=== PATIENT | female | born 1930 | race Caucasian/White ===

== ENCOUNTER 2016-05-04 11:43 | Observation (INO) | payer MEDICARE ==
[2016-05-04] VITALS (9 sets, daily range): BP systolic 145–223; BP diastolic 67–115; PULSE 64–86; RESP 15–20; TEMP 96.4–98.1; O2SAT 98–100
[~2016-05-04 11:43] MED LIST: ACET325 PO; CLAR5TAB PO; CYAN25003 PO; DETR4CAP PO; DOCU1CAP39 PO; DUONI INH; ESTR1TAB PO; HYDR10SO PO; IRBE1TAB39 PO; LEVO75TA3 PO; METO25 PO; MVI PO; OXYC1SOL5 PO; PROT40TA PO; VITA200017 PO; WALKER ROLLING
[2016-05-04] MEDS ORDERED: SODIUM CHLORIDE 0.9% FLUSH 10 ML FLUSH IVF PRN (12:00)
[2016-05-04 12:19] LABS: BASOPHIL % 0.4 % (0.0-2.0); EOSINOPHIL # 0.2 TH/MM3 (0-0.4); EOSINOPHIL % 2.6 % (0.0-4.0); HEMATOCRIT 39.8 % (35.0-46.0); HEMO FLAGS DIFF FINAL; LYMPH % 27.6 % (9.0-44.0); LYMPHOCYTE # 1.9 TH/MM3 (1.0-4.8); MEAN CELL VOLUME 89.9 FL (80.0-100.0); MEAN CORPUSCULAR HEMOGLOBIN 30.6 PG (27.0-34.0); MEAN CORPUSCULAR HGB CONC 34.1 % (32.0-36.0); MONO % 9.8 % (0.0-8.0); NEUT % 59.6 % (16.0-70.0); PLATELET COUNT 403 TH/MM3 (150-450); RED BLOOD COUNT 4.42 MIL/MM3 (4.00-5.30); RED CELL DISTRIBUTION WIDTH 12.2 % (11.6-17.2); WHITE BLOOD COUNT 6.8 TH/MM3 (4.0-11.0)
[2016-05-04 12:26] LABS: BLOOD, URINE TRACE (NEG); GLUCOSE,URINE NEG (NEG); KETONE, URINE NEG (NEG); NITRITE,URINE NEG (NEG)
[2016-05-04 12:28] LABS: CHLORIDE 98 MEQ/L (98-107); POTASSIUM 4.1 MEQ/L (3.5-5.1); SODIUM (NA) 135 MEQ/L (136-145)
[2016-05-04 12:31] LABS: ANION GAP 9 MEQ/L (5-15); BICARBONATE 27.8 MEQ/L (21.0-32.0); BLOOD UREA NITROGEN 13 MG/DL (7-18)
[2016-05-04 12:32] LABS: METHOD OF COLLECTION CLEAN CATCH; SQUAMOUS EPITHELIAL CELL URINE > 8 /hpf (0-5); URINE COLOR YELLOW (YELLW/STRAW); WBC, URINE INNUM /hpf (0-5)
[2016-05-04 12:33] LABS: BACTERIA, URINE MANY /hpf; COMMENT (UR) CULTURE INDICATED; CULTURE IF INDICATED CULTURE INDICATED
[2016-05-04 12:33] LABS: APTT (PATIENT) 26.1 SEC (24.3-30.1); INTERNATIONAL NORMALIZED RATIO 0.9 RATIO; PROTHROMBIN TIME - PATIENT 10.2 SEC (9.8-11.6)
--- NOTE | 2016-05-04 12:33 | PD ---
HPI Chief Complaint: Numbness/Tingling Time Seen by Provider: 11:54 Travel History International Travel<30 days: No Contact w/Intl Traveler<30days: No Traveled to known affect area: No History of Present Illness HPI An 86-year-old woman presents to the emergency department brought in by her after she experienced the abrupt onset of numbness of her left arm and left face lasting about 10 minutes happening just prior to arrival. She's never had previous similar symptoms. She does not appreciate any weakness. The did not notice any facial droop, confusion, or speech changes. She otherwise has been feeling generally well and healthy. She's having a lot of trouble with her right leg. She has a lot of chronic neck and back problems and is been having sciatica-like symptoms in the right leg ongoing for the past several weeks. Otherwise no recent illness or injury. She is not having any headache. History Past Medical History Narrative Medical Hypertension Neck and back problems Menopausal: Yes Social History Alcohol Use: Yes ([employer]) Tobacco Use: No Allergies-Medications (Allergen,Severity, Reaction): Coded Allergies: Norvasc (Verified Allergy, Severe, 05/04/16) Sulfa (Verified Allergy, Severe, 05/04/16) Vasotec (Verified Allergy, Severe, 05/04/16) Zestril (Verified Allergy, Severe, 05/04/16) Codeine (Verified Allergy, Intermediate, 05/04/16) Demerol (Verified Allergy, Unknown, 05/04/16) Iodine (Verified Allergy, Unknown, 05/04/16) 04/16/14--RASH Irbesartan (Verified Allergy, Unknown, RASH, 05/04/16) 04/16/14 DENIES ALLERGY Dilaudid (Verified Adverse Reaction, Severe, "CLIMBS THE CEILING", 05/04/16 ) Reported Meds & Prescriptions Reported Meds & Active Scripts Active Reported Aspir-81 (Aspirin) 81 Mg Tabdr Hydralazine (Hydralazine HCl) 25 Mg Tab 12.5 Mg PO DAILY@1600 Take with a meal Avapro (Irbesartan) 300 Mg Tab 300 Mg PO DAILY Levothyroxine (Levothyroxine Sodium) 75 Mcg Tab 75 Mcg PO DAILY Atenolol 25 Mg Tab 25 Mg PO DAILY Spironolactone 25 Mg Tab 25 Mg PO DAILY Estradiol 1 Mg Tab 1 Mg PO DAILY Detrol LA (Tolterodine Tartrate) 4 Mg Cap 4 Mg PO DAILY Clarinex (Desloratadine) 5 Mg Tab 5 Mg PO DAILY Review of Systems Except as stated in HPI: all other systems reviewed are Neg Physical Exam Narrative GENERAL: Well-appearing 86 year-old woman, no acute distress. SKIN: Warm and dry. HEAD: Atraumatic. Normocephalic. EYES: Pupils equal and round. No scleral icterus. No injection or drainage. ENT: No nasal bleeding or discharge. Mucous membranes pink and moist. NECK: Trachea midline. No JVD. CARDIOVASCULAR: Regular rate and rhythm. No murmur appreciated. RESPIRATORY: No accessory muscle use. Clear to auscultation. Breath sounds equal bilaterally. GASTROINTESTINAL: Abdomen soft, non-tender, nondistended. Hepatic and splenic margins not palpable. MUSCULOSKELETAL: No obvious deformities. No edema.. NEUROLOGICAL: Awake and alert. Cranial nerves II through XII are intact. No facial asymmetry. Motor strength full and equal upper and lower extremities. No upper or lower extremity drift. Normal finger to nose. Sensation intact to light touch and symmetric and equal throughout. PSYCHIATRIC: Appropriate mood and affect; insight and judgment normal. Data Data Last Documented VS Vital Signs Date Time Temp Pulse Resp B/P Pulse Ox O2 Delivery O2 Flow Rate FiO2 05/04/16 13:05 76 15 145/67 98 Room Air 05/04/16 12:12 98.1 Orders Electrocardiogram (05/04/16 11:55) Prothrombin Time / Inr (Pt) (05/04/16 11:55) Act Partial Throm Time (Ptt) (05/04/16 11:55) Complete Blood Count With Diff (05/04/16 11:55) Comprehensive Metabolic Panel (05/04/16 11:55) Troponin I (05/04/16 11:55) Urinalysis - C+S If Indicated (05/04/16 11:55) Ct Brain W/O Iv Contrast(Rout) (05/04/16 11:55) Chest, Single Ap (05/04/16 11:55) Ecg Monitoring (05/04/16 11:55) Iv Access Insert/Monitor (05/04/16 11:55) Oximetry (05/04/16 11:55) Sodium Chloride 0.9% Flush (Ns Flush) (05/04/16 12:00) Urine Culture (05/04/16 12:15) Ceftriaxone Inj (Rocephin Inj) (05/04/16 13:45) Admit Order (Ed Use Only) (05/04/16 ) Labs Laboratory Tests Test 05/04/16 05/04/16 12:05 12:15 White Blood Count 6.8 TH/MM3 Red Blood Count 4.42 MIL/MM3 Hemoglobin 13.5 GM/DL Hematocrit 39.8 % Mean Corpuscular Volume 89.9 FL Mean Corpuscular Hemoglobin 30.6 PG Mean Corpuscular Hemoglobin 34.1 % Concent Red Cell Distribution Width 12.2 % Platelet Count 403 TH/MM3 Mean Platelet Volume 6.8 FL Neutrophils (%) (Auto) 59.6 % Lymphocytes (%) (Auto) 27.6 % Monocytes (%) (Auto) 9.8 % Eosinophils (%) (Auto) 2.6 % Basophils (%) (Auto) 0.4 % Neutrophils # (Auto) 4.0 TH/MM3 Lymphocytes # (Auto) 1.9 TH/MM3 Monocytes # (Auto) 0.7 TH/MM3 Eosinophils # (Auto) 0.2 TH/MM3 Basophils # (Auto) 0.0 TH/MM3 CBC Comment DIFF FINAL Differential Comment Prothrombin Time 10.2 SEC Prothromb Time International 0.9 RATIO Ratio Activated Partial 26.1 SEC Thromboplast Time Sodium Level 135 MEQ/L Potassium Level 4.1 MEQ/L Chloride Level 98 MEQ/L Carbon Dioxide Level 27.8 MEQ/L Anion Gap 9 MEQ/L Blood Urea Nitrogen 13 MG/DL Creatinine 1.20 MG/DL Estimat Glomerular Filtration 43 ML/MIN Rate Random Glucose 81 MG/DL Calcium Level 8.6 MG/DL Total Bilirubin 0.4 MG/DL Aspartate Amino Transf 16 U/L (AST/SGOT) Alanine Aminotransferase 16 U/L (ALT/SGPT) Alkaline Phosphatase 79 U/L Troponin I LESS THAN 0.02 NG/ML Total Protein 7.4 GM/DL Albumin 3.9 GM/DL Urine Collection Type CLEAN CATCH Urine Color YELLOW Urine Turbidity MOD Urine pH 6.0 Urine Specific [place] 1.008 Urine Protein NEG mg/dL Urine Glucose (UA) NEG mg/dL Urine Ketones NEG mg/dL Urine Occult Blood TRACE Urine Nitrite NEG Urine Bilirubin NEG Urine Leukocyte Esterase LARGE Urine RBC 20-24 /hpf Urine WBC INNUM /hpf Urine WBC Clumps MOD Urine Squamous Epithelial > 8 /hpf Cells Urine Bacteria MANY /hpf Microscopic Urinalysis Comment CULTURE INDICATED Urine Collection Time 12:15 [facility] Medical Decision Making Medical Screen Exam Complete: Yes Emergency Medical Condition: Yes Interpretation(s) My review of EKG: Normal sinus rhythm at a rate of 75, normal axis, normal intervals, no acute ischemia. LABS: CBC is unremarkable. CMP is unremarkable. Creatinine 1.2 Troponin negative Coags unremarkable UA with innumerable white blood cells, moderate white blood cell clumps, negative nitrites, many bacteria. Chest x-ray: No acute disease. Stable calcified granuloma in the left midlung. Degenerative changes throughout the thoracic spine. Head CT: Moderate periventricular subcortical white matter small vessel ischemic changes bilaterally. Mild cerebral atrophy. No acute infarct, acute hemorrhage, mass effect, or extra-axial fluid collections. Differential Diagnosis TIA, CVA, anxiety, dissection, other Narrative Course Medical decision making INITIAL cause an 86-year-old woman who presents to the emergency department with about 10 minutes worth of left-sided facial and arm numbness suggestive of TIA symptoms. No weakness. No facial droop. Blood pressures pretty elevated. We'll check labs, CT, x-ray, reassess. Based on the patient's ABCD 2 score, she is moderate risk with a 7 day stroke risk of 6%. Likely admission for further evaluation. Diagnosis Primary Impression: TIA (transient ischemic attack) Admitting Information Admitting Physician Requests: Admit Jose Alejandro Huntley MD May 04, 2016 12:33
[2016-05-04 12:34] LABS: ALT (GPT) 16 U/L (10-53); AST (GOT) 16 U/L (15-37); GLOMERULAR FILTRATION RATE 43 ML/MIN (>89)
[2016-05-04] MEDS ORDERED: ASPI81TA81 (12:34)
[2016-05-04] MEDS ORDERED: SPIR25TA PO (12:34)
[2016-05-04] MEDS ORDERED: CLAR5TAB PO (12:34)
[2016-05-04] MEDS ORDERED: DETR4CAP PO (12:34)
[2016-05-04] MEDS ORDERED: HYDR25TA35 PO (12:34)
[2016-05-04] MEDS ORDERED: ESTR1TAB PO (12:34)
[2016-05-04] MEDS ORDERED: IRBE300T44 PO (12:34)
[2016-05-04] MEDS ORDERED: ATEN25TA PO (12:34)
[2016-05-04] MEDS ORDERED: LEVO75TA3 PO (12:34)
[2016-05-04 12:36] LABS: TOTAL BILIRUBIN ADULT 0.4 MG/DL (0.2-1.0)
[2016-05-04 12:37] LABS: ALKALINE PHOSPHATASE 79 U/L (45-117)
--- NOTE | 2016-05-04 12:57 | RADHPO ---
EXAM DATE/TIME: 05/04/2016 12:25 [facility] COMPARISON: CHEST SINGLE AP, April 15, 2011, 13:55. INDICATIONS : Short of breath. MEDICAL HISTORY : Cardiovascular disease. SURGICAL HISTORY : Fusion, cervical. ENCOUNTER: Initial ACUITY: 1 day PAIN SCORE: 2/10 LOCATION: Bilateral chest FINDINGS: There is a stable calcified granuloma within the left mid lung field. The heart is stable. The pulm onary vascular pattern is normal. The lungs are clear. Hardware is noted within the lower cervical spine. Degenerative changes are noted throughout the thoracic spine. CONCLUSION: 1. No acute cardiopulmonary disease. 2. Stable calcified granuloma within the left mid lung field. 3. Degenerative changes throughout the thoracic spine. Sergey Barnes MD on May 04, 2016 at 12:51 Board Certified Radiologist. This report was verified electronically.
--- NOTE | 2016-05-04 13:28 | RADHPO ---
EXAM DATE/TIME: 05/04/2016 12:37 [facility] COMPARISON: CT BRAIN W/O CONTRAST, May 14, 2014, 4:59. INDICATIONS : Left upper extremity and left facial numbness, now resolved. RADIATION DOSE: 62.98 CTDIvol (mGy) MEDICAL HISTORY : Hypertension. Cardiovascular disease SURGICAL HISTORY : Tonsillectomy. Orthopedic surgery. Cataract. ENCOUNTER: Initial ACUITY: 1 day PAIN SCALE: 0/10 LOCATION: cranial TECHNIQUE: Multiple contiguous axial images were obtained of the head. Using automated exposure control and adj ustment of the mA and/or kV according to patient size, radiation dose was kept as low as reasonably a chievable to obtain optimal diagnostic quality images. FINDINGS: Moderate periventricular and subcortical white matter small vessel ischemic changes are noted bilaterally. There is no acute infarct, acute hemorrhage, mass effect or extra-axial fluid col lections. Mild cerebral atrophy is noted. CONCLUSION: 1. Moderate periventricular and subcortical white matter small vessel ischemic changes bilaterally. 2. Mild cerebral atrophy. 3. No acute infarct, acute hemorrhage, mass effect or extra-axial fluid collections. Sergey Barnes MD on May 04, 2016 at 12:58 Board Certified Radiologist. This report was verified electronically.
[2016-05-04] MEDS ORDERED: cefTRIAXone INJ 1,000 MG in SODIUM CHLORIDE 0.9% INJ 100 ML IV ONE (13:45)
[2016-05-04] MEDS ORDERED: ONDANSETRON HCL 4 MG/2 ML VIAL IVP PRN (16:45)
[2016-05-04] MEDS ORDERED: ACETAMINOPHEN 325 MG TAB PO PRN (16:45)
[2016-05-04] MEDS ORDERED: NALOXONE HCL 0.4 MG/ML AMP IV PRN (16:45)
[2016-05-04] MEDS ORDERED: SODIUM CHLORIDE 0.9% FLUSH 10 ML FLUSH IV FLUSH PRN (16:45)
--- NOTE | 2016-05-04 17:06 | HHI.HP ---
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 Patient states this sensation began initially in the middle finger of her left hand and then spread to encompass the second to the fifth digits. She denies strength in the sensation in the thumb or the remainder of the hand as well as in the left arm. Within a few minutes the she then developed coldness and decreased sensation from little left side. Patient states that her symptoms lasted for about 10 minutes and had resolved prior to her coming to the ED. At that time the patient denies any complaints of slurred speech, headache, dizziness, lightheadedness, weakness, loss of vision/ vision changes, palpitations, nausea, vomiting, chest pain or shortness of breath. She denies any previous history of CVA or TIA. She denies any significant cardiac history. She does report urinary urgency but denies any dysuria or hematuria. She denies any issues with hematochezia, melena, diarrhea or constipation. Patient has significant lumbar spine history and has had multiple spine surgeries in the past. She complains of worsening right leg pain that she states is sciatica over the last week and actually fell due to the right leg giving out on her and hit her head on the bed about 4 nights ago. In the ED, patient had an elevated blood pressure of 223/115 but this is improved significantly is now 162/84. CT of the head was obtained and was negative. Review of Systems 10 point review of systems completed and all negative except as stated in the history of present illness Past Family Social History Past Medical History Hypertension Dyslipidemia Hypothyroidism DD the cervical and lumbar spine Past Surgical History Previous cervical fusion Lumbar spine surgery 6 Appendectomy Tonsillectomy Reported Medications Aspir-81 (Aspirin) 81 Mg Tabdr Hydralazine (Hydralazine HCl) 25 Mg Tab 12.5 Mg PO DAILY@1600 Take with a meal Avapro (Irbesartan) 300 Mg Tab 300 Mg PO DAILY Levothyroxine (Levothyroxine Sodium) 75 Mcg Tab 75 Mcg PO DAILY Atenolol 25 Mg Tab 25 Mg PO DAILY Spironolactone 25 Mg Tab 25 Mg PO DAILY Estradiol 1 Mg Tab 1 Mg PO DAILY Detrol LA (Tolterodine Tartrate) 4 Mg Cap 4 Mg PO DAILY Clarinex (Desloratadine) 5 Mg Tab 5 Mg PO DAILY Allergies: Coded Allergies: Norvasc (Verified Allergy, Severe, 05/07/16) Sulfa (Verified Allergy, Severe, 05/07/16) Vasotec (Verified Allergy, Severe, 05/07/16) Zestril (Verified Allergy, Severe, 05/07/16) Codeine (Verified Allergy, Intermediate, 05/07/16) Demerol (Verified Allergy, Unknown, 05/07/16) Iodine (Verified Allergy, Unknown, 05/07/16) 04/16/14--RASH Irbesartan (Verified Allergy, Unknown, RASH, 05/07/16) 04/16/14 DENIES ALLERGY Dilaudid (Verified Adverse Reaction, Severe, "CLIMBS THE CEILING", 05/07/16 ) Active Ordered Medications Current Medications Medications (Trade) Dose Ordered Sig/Janina Route Start Time Stop Time Status Last Admin (NS Flush) 2 ml UNSCH PRN IVF 05/04/16 12:00 Family History Mother, age 60, CVA Father, when patient was 3 months old from tuberculosis Social History Patient denies any tobacco use. Rare ETOH consumption. Denies any illicit drug use. Patient is lives with her . Physical Exam Vital Signs Vital Signs Date Time Temp Pulse Resp B/P Pulse Ox O2 Delivery O2 Flow Rate FiO2 05/04/16 15:08 71 15 162/84 05/04/16 13:05 76 15 145/67 98 Room Air 05/04/16 12:12 98.1 86 15 223/115 98 05/04/16 12:10 98 Room Air 3/22/17 12:00 197/104 Physical Exam GENERAL: This is a well-nourished, well-developed patient, in no apparent distress. SKIN: No rashes, ecchymoses or lesions. Cool and dry. HEAD: Atraumatic. Normocephalic. EYES: Pupils equal round and reactive. Extraocular motions intact. No scleral icterus. No injection or drainage. ENT: Nose without bleeding, purulent drainage or septal hematoma. Throat without erythema, tonsillar hypertrophy or exudate. Uvula midline. Airway patent. NECK: Trachea midline. No lymphadenopathy. Supple, nontender, no meningeal signs. CARDIOVASCULAR: Regular rate and rhythm without murmurs, gallops, or rubs. RESPIRATORY: Clear to auscultation. Breath sounds equal bilaterally. No wheezes , rales, or rhonchi. GASTROINTESTINAL: Abdomen soft, non-tender, nondistended. No hepato-splenomegaly , or palpable masses. No guarding. MUSCULOSKELETAL: Extremities without clubbing, cyanosis, or edema. No joint tenderness, effusion, or edema noted. No calf tenderness. NEUROLOGICAL: Awake and alert. Cranial nerves II through XII intact. Motor and sensory grossly within normal limits. Five out of 5 muscle strength in bilateral upper extremities and left lower extremity. 4 out of 5 motor function right lower extremity. Normal speech. Laboratory Laboratory Tests Test 05/04/16 05/04/16 12:05 12:15 White Blood Count 6.8 Red Blood Count 4.42 Hemoglobin 13.5 Hematocrit 39.8 Mean Corpuscular Volume 89.9 Mean Corpuscular Hemoglobin 30.6 Mean Corpuscular Hemoglobin 34.1 Concent Red Cell Distribution Width 12.2 Platelet Count 403 Mean Platelet Volume 6.8 Neutrophils (%) (Auto) 59.6 Lymphocytes (%) (Auto) 27.6 Monocytes (%) (Auto) 9.8 Eosinophils (%) (Auto) 2.6 Basophils (%) (Auto) 0.4 Neutrophils # (Auto) 4.0 Lymphocytes # (Auto) 1.9 Monocytes # (Auto) 0.7 Eosinophils # (Auto) 0.2 Basophils # (Auto) 0.0 CBC Comment DIFF FINAL Differential Comment Prothrombin Time 10.2 Prothromb Time International 0.9 Ratio Activated Partial 26.1 Thromboplast Time Sodium Level 135 Potassium Level 4.1 Chloride Level 98 Carbon Dioxide Level 27.8 Anion Gap 9 Blood Urea Nitrogen 13 Creatinine 1.20 Estimat Glomerular Filtration 43 Rate Random Glucose 81 Calcium Level 8.6 Total Bilirubin 0.4 Aspartate Amino Transf 16 (AST/SGOT) Alanine Aminotransferase 16 (ALT/SGPT) Alkaline Phosphatase 79 Troponin I LESS THAN 0.02 Total Protein 7.4 Albumin 3.9 Urine Collection Type CLEAN CATCH Urine Color YELLOW Urine Turbidity MOD Urine pH 6.0 Urine Specific [place] 1.008 Urine Protein NEG Urine Glucose (UA) NEG Urine Ketones NEG Urine Occult Blood TRACE Urine Nitrite NEG Urine Bilirubin NEG Urine Leukocyte Esterase LARGE Urine RBC 20-24 Urine WBC INNUM Urine WBC Clumps MOD Urine Squamous Epithelial > 8 Cells Urine Bacteria MANY Microscopic Urinalysis Comment CULTURE INDICATED Urine Collection Time 12:15 Date/Time Procedure Status Source Growth 05/04/16 12:15 Urine Culture Received Urine Clean Catch Pending Result Diagram: 05/04/16 1205 05/04/16 1205 Imaging Last [address] 05/04/16 1155 Signed Impressions: Service Date/Time: Wednesday, May 04, 2016 12:37 - CONCLUSION: 1. Moderate periventricular and subcortical white matter small vessel ischemic changes bilaterally. 2. Mild cerebral atrophy. 3. No acute infarct, acute hemorrhage , mass effect or extra-axial fluid collections. Sergey Barnes MD Chest X-Ray 05/04/16 1155 Signed Impressions: Service Date/Time: Wednesday, May 04, 2016 12:25 - CONCLUSION: 1. No acute cardiopulmonary disease. 2. Stable calcified granuloma within the left mid lung field. 3. Degenerative changes throughout the thoracic spine. 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 Suspected TIA, rule out underlying stroke - Admit to observation - Patient at increased risk for CVA given history of estradiol use, uncontrolled hypertension, moderate periventricular and subcortical white matter small vessel ischemic changes bilaterally as noted on CT of the head and reported history of dyslipidemia not on any statin at home - Monitor on telemetry for arrhythmia - Echocardiogram ordered - Carotid ultrasound - Obtain TSH level, lipid panel and A1c - Neuro checks - PT/OT eval/tx - Baby aspirin daily - High dose statin - Keep head of bed flat - MRI and MRA of brain - Cycle cardiac enzymes - Allow permissive hypertension Hypertension urgency - Improved - Continue to monitor BP - Labetalol and Enalapril prn for stroke protocol parameter Symptomatic UTI - IV Rocephin - Follow up on culture results SANYA - Baseline around .75 - Hold Spironolactone - Avoid nephrotoxic agents - repeat labs in am Hyponatremia - Mild - Gentle IV fluid hydration - Monitor response with labs in a.m. Hypothyroidism - Resume home levothyroxine dose - Obtain TSH level DVT prophylaxis - SCD/BULMARO hose Written by Jaz Shelby, acting as scribe for Dr. Herrmann on 05/04/16 at 16:34. Jaz Shelby May 04, 2016 17:06 Malik Herrmann MD May 04, 2016 19:58
[2016-05-04] MEDS: SODIUM CHLOR 0.9% 1000 ML INJ 1,000 ML IV SCH (18:12)
[2016-05-04] MEDS: ATORVASTATIN 40 MG TAB PO SCH (18:15)
[2016-05-04] MEDS: ASPIRIN EC 81 MG TABEC PO SCH (18:15)
[2016-05-04] MEDS ORDERED: ENALAPRILAT 1.25 MG/ML VIAL IV PRN (18:45)
[2016-05-04] MEDS ORDERED: LABETALOL HCL 100 MG/20 ML VIAL IV PRN (18:45)
[2016-05-04 19:55] LABS: INTERNATIONAL NORMALIZED RATIO 0.9 RATIO; PROTHROMBIN TIME - PATIENT 10.4 SEC (9.8-11.6)
[2016-05-04 20:12] LABS: CREATINE KINASE 53 U/L (26-192)
[2016-05-04] MEDS: INSULIN ASPART SUPPLEMENTAL SCALE SQ SCH (21:00)
[2016-05-04] MEDS: SODIUM CHLORIDE 0.9% FLUSH 10 ML FLUSH IV FLUSH SCH (21:00)
[2016-05-04] MEDS: HEPARIN SODIUM - SQ 10,000 UNITS/ML VIAL SQ SCH (22:31)
[2016-05-04] MEDS ORDERED: LORazepam 2 MG/ML VIAL IV PUSH PRN (22:45)
[2016-05-05] VITALS: BP_SYST 146; BP_SYST 148; BP_DIAS 69; BP_DIAS 87; PULSE 64; PULSE 65; PULSE 66; RESP 19; RESP 20; TEMP 96.4; TEMP 96.7; O2SAT 97; O2SAT 99
[2016-05-05 01:16] LABS: CREATINE KINASE 47 U/L (26-192)
[2016-05-05 04:00] VITALS: BP 142/83; PULSE 68; RESP 20; TEMP 96.7; O2SAT 98
[2016-05-05] MEDS: HEPARIN SODIUM - SQ 10,000 UNITS/ML VIAL SQ SCH ×2 (05:42→14:42)
[2016-05-05 05:49] LABS: AUTOMATED NEUTROPHIL # 3.4 TH/MM3 (1.8-7.7); BASOPHIL % 0.5 % (0.0-2.0); EOSINOPHIL # 0.2 TH/MM3 (0-0.4); HEMATOCRIT 37.3 % (35.0-46.0); HEMO FLAGS DIFF FINAL; LYMPH % 29.8 % (9.0-44.0); LYMPHOCYTE # 1.8 TH/MM3 (1.0-4.8); MEAN CELL VOLUME 89.7 FL (80.0-100.0); MEAN CORPUSCULAR HEMOGLOBIN 31.5 PG (27.0-34.0); MEAN CORPUSCULAR HGB CONC 35.1 % (32.0-36.0); NEUT % 54.7 % (16.0-70.0); PLATELET COUNT 357 TH/MM3 (150-450); RED BLOOD COUNT 4.15 MIL/MM3 (4.00-5.30); RED CELL DISTRIBUTION WIDTH 12.4 % (11.6-17.2); WHITE BLOOD COUNT 6.1 TH/MM3 (4.0-11.0)
[2016-05-05] MEDS ORDERED: LEVOTHYROXINE SODIUM 75 MCG TAB PO SCH (06:00)
[2016-05-05 06:07] LABS: CHLORIDE 105 MEQ/L (98-107); SODIUM (NA) 139 MEQ/L (136-145)
[2016-05-05 06:13] LABS: ANION GAP 9 MEQ/L (5-15); BICARBONATE 24.9 MEQ/L (21.0-32.0); BLOOD UREA NITROGEN 11 MG/DL (7-18)
[2016-05-05 06:16] LABS: GLOMERULAR FILTRATION RATE 67 ML/MIN (>89)
[2016-05-05 06:25] LABS: CREATINE KINASE 40 U/L (26-192)
[2016-05-05] MEDS: INSULIN ASPART SUPPLEMENTAL SCALE SQ SCH ×3 (06:42→16:00)
[2016-05-05] MEDS ORDERED: cefTRIAXone INJ 1,000 MG in SODIUM CHLORIDE 0.9% INJ 100 ML IV SCH (07:00)
[2016-05-05 08:00] VITALS: BP 153/80; PULSE 71; RESP 20; TEMP 95.3; O2SAT 99
[2016-05-05 08:15] VITALS: O2SAT 97
[2016-05-05] MEDS: SODIUM CHLORIDE 0.9% FLUSH 10 ML FLUSH IV FLUSH SCH (09:00)
[2016-05-05] MEDS ORDERED: TOLTERODINE TARTRATE 4 MG CAP LA PO SCH (09:00)
[2016-05-05] MEDS ORDERED: LORATADINE 10 MG TAB PO SCH (09:00)
[2016-05-05] MEDS: ASPIRIN EC 81 MG TABEC PO SCH (09:39)
[2016-05-05] MEDS: ATORVASTATIN 40 MG TAB PO SCH (09:39)
[2016-05-05 09:50] LABS: HDL CHOLESTEROL 38.6 MG/DL (40.0-60.0); LDL CHOLESTEROL 119 MG/DL (0-99)
--- NOTE | 2016-05-05 10:29 | RADHPO ---
EXAM DATE/TIME: 05/05/2016 08:59 [facility] COMPARISON: No previous studies available for comparison. INDICATIONS : Cerebrovascular accident. Left arm and facial numbness. MEDICAL HISTORY : Hypertension. Hypercholesterolemia. SURGICAL HISTORY : Tonsillectomy. Cholecystectomy. Appendectomy. Hysterectomy. Cardiac catheterization. ENCOUNTER: Initial ACUITY: 1 day PAIN SCORE: 0/10 LOCATION: Bilateral neck PEAK SYSTOLIC VELOCITIES (cm/sec): ICA/CCA RATIO: Right: 1.0 Left: 1.3 ICA: Right: 84 Left: 150 CCA: Right: 88 Left: 112 ECA: Right: 62 Left: 60 VERTEBRAL: Right: 60 antegrade Left: 77 antegrade Elevated flow velocities and ICA/CCA ratios have been found to correlate with increased degrees of vessel stenosis, calculated as percentage of diameter relative to a normal segment of distal ICA/CCA FINDINGS: RIGHT CAROTID: No significant stenosis is visualized. The waveforms are within normal limits. LEFT CAROTID: Moderate amount of calcified plaque in the mid common carotid and carotid bulb. The waveforms are wi thin normal limits. VERTEBRAL ARTERIES: Antegrade flow is seen in both vertebral arteries. MISCELLANEOUS: None. CONCLUSION: 1. Moderate amount of calcified plaque in the mid common carotid and carotid bulb on the left. 2. However, the degree of associated stenosis on the left is minimal, less than 50% by velocities and would not be considered hemodynamically significant. 3. Normal sonographic appearance of the right carotid system. Antegrade flow in both vertebral arteri es Kulwinder Johnston MD on May 05, 2016 at 10:25 Board Certified Radiologist. This report was verified electronically.
[2016-05-05 12:00] VITALS: BP 160/93; PULSE 80; RESP 20; TEMP 95.4; O2SAT 98
--- NOTE | 2016-05-05 12:34 | HHI.PR ---
Subjective Remarks Follow-up on patient with suspected TIA. She states she is doing well. She has not had any resumption of her previous symptoms including numbness or tingling and decreased sensation. She denies any slurred speech, headache or weakness. No chest pain. She is looking forward to going home today. She does complain of some anxiety with MRI studies and is requesting a mild sedative if possible. Objective Vitals Vital Signs Date Time Temp Pulse Resp B/P Pulse Ox O2 Delivery O2 Flow Rate FiO2 05/05/16 08:00 95.3 71 20 153/80 99 05/05/16 04:00 96.7 68 20 142/83 98 05/05/16 00:00 96.4 64 20 146/87 99 05/05/16 00:00 66 05/04/16 22:23 98 21 05/04/16 20:10 Room Air 05/04/16 20:00 96.4 64 20 146/87 99 05/04/16 19:16 66 156/74 99 Room Air 05/04/16 18:15 71 15 157/87 100 05/04/16 15:08 71 15 162/84 05/04/16 13:05 76 15 145/67 98 Room Air I/O 05/04/16 05/04/16 05/04/16 05/05/16 05/05/16 05/05/16 07:00 15:00 23:00 07:00 15:00 23:00 Intake Total 240 ml 363 ml Balance 240 ml 363 ml Intake Oral 240 ml 0 ml IV Total 363 ml # Voids 1 2 2 # Bowel Movements 0 Result Diagram: 05/05/16 0500 05/05/16 0500 Imaging Last 48 hours Impressions Carotid Artery Ultrasound 05/05/16 0000 Signed Impressions: Service Date/Time: April 08:59 - CONCLUSION: 1. Moderate amount of calcified plaque in the mid common carotid and carotid bulb on the left. 2. However, the degree of associated stenosis on the left is minimal, less than 50%% by velocities and would not be considered hemodynamically significant. 3. Normal sonographic appearance of the right carotid system. Antegrade flow in both vertebral arteries Kulwinder Johnston MD Head CT 05/04/16 1155 Signed Impressions: Service Date/Time: Wednesday, May 04, 2016 12:37 - CONCLUSION: 1. Moderate periventricular and subcortical white matter small vessel ischemic changes bilaterally. 2. Mild cerebral atrophy. 3. No acute infarct, acute hemorrhage , mass effect or extra-axial fluid collections. Sergey Barnes MD Chest X-Ray 05/04/16 1155 Signed Impressions: Service Date/Time: Wednesday, May 04, 2016 12:25 - CONCLUSION: 1. No acute cardiopulmonary disease. 2. Stable calcified granuloma within the left mid lung field. 3. Degenerative changes throughout the thoracic spine. Sergey Barnes MD Objective Remarks GENERAL: This is a well-nourished, well-developed patient, in no apparent distress. A&Ox3. is at the bedside. SKIN: Warm and dry. HEAD: Small tender hematoma back of head. EYES: Pupils equal round and reactive. Extraocular motions intact. CARDIOVASCULAR: Regular rate and rhythm without murmurs, gallops, or rubs. RESPIRATORY: Clear to auscultation. Breath sounds equal bilaterally. No wheezes , rales, or rhonchi. GASTROINTESTINAL: Abdomen soft, non-tender, nondistended. No hepato-splenomegaly , or palpable masses. No guarding. MUSCULOSKELETAL: Extremities without clubbing, cyanosis, or edema. No joint tenderness, effusion, or edema noted. No calf tenderness. NEUROLOGICAL: Awake and alert. Able to move all 4 extremities. No focal neurologic deficit appreciated. Medications and IVs Current Medications Medications (Trade) Dose Ordered Sig/Janina Route Start Time Stop Time Status Last Admin (NS Flush) 2 ml UNSCH PRN IV FLUSH 05/04/16 16:45 (NS Flush) 2 ml BID IV FLUSH 05/04/16 21:00 (Tylenol) 650 mg Q4H PRN PO 05/04/16 16:45 (Zofran Inj) 4 mg Q6H PRN IVP 05/04/16 16:45 Naloxone HCl 0.4 mg 0.4 mg UNSCH PRN IV 05/04/16 16:45 (Rocephin Inj/NS Inj) 100 ml @ 200 mls/hr Q24H IV 05/05/16 07:00 05/05/16 06:42 (Lipitor) 40 mg DAILY PO 05/04/16 18:00 05/05/16 09:39 Aspirin 81 mg 81 mg DAILY PO 05/04/16 17:15 05/05/16 09:39 (NS 1000 ml Inj) 1,000 ml @ 42 mls/hr [id number] IV 05/04/16 17:15 05/04/16 18:12 (Trandate Inj) 10 mg Q2H PRN IV 05/04/16 18:45 (Heparin Inj) 5,000 units Q8HR SQ 05/04/16 22:00 05/05/16 05:42 (Synthroid) 75 mcg DAILY@0600 PO 05/05/16 06:00 05/05/16 05:43 (Detrol La) 4 mg DAILY PO 05/05/16 09:00 05/05/16 10:28 (Claritin) 10 mg DAILY PO 05/05/16 09:00 05/05/16 09:39 A/P Assessment and Plan 86-year-old female with a past medical history significant for hypertension, dyslipidemia, hypothyroidism and 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 Suspected TIA, rule out underlying stroke - No new events overnight. - Patient at increased risk for CVA given history of estradiol use, uncontrolled hypertension, moderate periventricular and subcortical white matter small vessel ischemic changes bilaterally as noted on CT of the head and reported history of dyslipidemia not on any statin at home - Monitor on telemetry for arrhythmia - Echocardiogram pending - Carotid ultrasound moderate amount of calcified plaque in the mid common carotid and carotid bulb on the left however degree of stenosis is minimal and less than 50% by velocities, not hemodynamically significant. Normal on the right. - MRI and MRA of brain pending, Ativan when necessary for anxiety prior to procedure - TSH level within normal limits , lipid panel: Triglycerides 187 LDL 119 HDL 38.6 and A1c pending. Patient will need a follow-up with her primary care physician Dr. Ordoñez to discuss statin therapy. - Neuro checks - PT able to ambulate well with PT with no loss of balance. - Baby aspirin daily - High dose statin - Cardiac enzymes negative 3 - Allow permissive hypertension Hypertension urgency - Improved, BP now 153/80 - Continue to monitor BP - Labetalol and Enalapril prn for stroke protocol parameter Symptomatic UTI - IV Rocephin - Follow up on culture results SANYA - Resolved Hyponatremia - Resolved - Discontinue IV fluid hydration Hypothyroidism - Continue home levothyroxine dose - TSH level 2.190 DDD lumbar spine - She has an extensive lumbar spine history with multiple surgeries in the past. Chronic right lumbar radiculopathy. - Currently undergoing workup by Dr. Su. DVT prophylaxis - SCD/BULMARO dhiraje Written by Jaz Shelby PA-C acting as scribe for Dr. Michaels on at 12:10. All or portions of this note were transcribed by scribe Jaz Shelby PA-C. I, Dr. Sunny Michaels personally performed the history, physical exam, and medical decision making; and confirmed the accuracy of the information in the transcribed note. Authenticated by Dr. Sunny Michaels on 05/05/16 at 13:27. Discharge Planning Plan for discharge home if MRI is negative. Jaz Shelby May 05, 2016 12:34 Sunny Michaels MD May 05, 2016 13:27
--- NOTE | 2016-05-05 14:35 | EKG ---
Date Performed: 05/04/2016 Time Performed: 12:00:22 PTAGE: 86 years EKG: Sinus rhythm Normal ECG Compared to prior tracing no significant change PREVIOUS TRACING : 04/16/2014 13.04 DOCTOR: Eddy Quezada Interpretating Date/Time 05/05/2016 14:33:29
[2016-05-05 16:00] VITALS: BP 160/90; PULSE 78; RESP 19; TEMP 96.9; O2SAT 99
[2016-05-05 16:26] LABS: HEMOGLOBIN A1a 0.9 %; HEMOGLOBIN A1b 1.5 %; HEMOGLOBIN Ao 86.4 %; HEMOGLOBIN LA1C 1.7 %; HEMOGLOBIN P3 3.6 %
--- NOTE | 2016-05-05 16:40 | RADHPO ---
EXAM DATE/TIME: 05/05/2016 15:58 [facility] COMPARISON: MRI LUMBAR SPINE W/O CONTRAST, March 08, 2013, 22:04. INDICATIONS : Stroke. MEDICAL HISTORY : Hypertension. Cardiovascular disease SURGICAL HISTORY : Tonsillectomy. Hysterectomy. Cholecystectomy. Fusion, cervical and lumbar. ENCOUNTER: Subsequent ACUITY: 2 day PAIN SCORE: 3/10 LOCATION: cranial Please note a normal MRA of the brain does not entirely exclude the possibility of a small aneurysm, nor the possibility of distal intracranial vessel disease. TECHNIQUE: 3D time of flight MRA was performed. Source images, multiplanar STS MIP, and 3D volume MIP reconstru ctions were reviewed. FINDINGS: There is excellent visualization of the major intracranial arteries out to the second-order branch ve ssels. There is no evidence for aneurysm, vessel truncation or stenosis, and no evidence for vascula r malformation. There is an incidental hypoplastic A1 segment on the left. CONCLUSION: 1. Incidental hypoplastic A1 segment on the left. Exam is otherwise unremarkable. Scooter Corey MD on May 05, 2016 at 16:37 Board Certified Radiologist. This report was verified electronically.
[2016-05-05] MEDS: SODIUM CHLOR 0.9% 1000 ML INJ 1,000 ML IV SCH (17:04)
--- NOTE | 2016-05-05 17:45 | RADHPO ---
EXAM DATE/TIME: 05/05/2016 15:58 [facility] COMPARISON: MRI LUMBAR SPINE W/O CONTRAST, March 08, 2013, 22:04. INDICATIONS : CVA. MEDICAL HISTORY : Hypertension. Cardiovascular disease SURGICAL HISTORY : Tonsillectomy. Hysterectomy. Cholecystectomy. Fusion, cervical and lumbar. ENCOUNTER: Subsequent ACUITY: 2 day PAIN SCORE: 3/10 LOCATION: cranial TECHNIQUE: Multiplanar, multisequence MRI of the brain was performed without contrast. FINDINGS: The examination demonstrates extra-axial fluid overlying the high convexities on the right. This is i sointense to brain on the T1-weighted images it is increased in signal on the T2-weighted images. Thi s would raise concern for acute subdural hemorrhage. There is no significant mass effect associated w ith this. This was not evident on patient's previous CT examination. Repeat CT examination of the bra in may be of benefit for further assessment. There is no evidence of mass effect associated with this . The ventricles are normal in size and configuration. There is extensive T2 signal throughout the whit e matter consistent with moderate microvascular ischemic demyelinative change. No mass lesion is iden tified. No acute cortical infarct is present. The appearance of the posterior fossa is unremarkable. The visualized portion of sinus and orbit are clear. CONCLUSION: 1. Small area of subdural hemorrhage along the parietal and temporal lobe on the right. This measures only approximately 3-5 mm in thickness. There is no significant mass effect. This is new compared to previous examination. 2. No acute infarct 3. Moderate microvascular ischemic demyelinative change. Scooter Corey MD on May 05, 2016 at 17:37 Board Certified Radiologist. This report was verified electronically.
[2016-05-05] MEDS ORDERED: LIPI40TA PO (18:58)
[2016-05-05] MEDS ORDERED: CIPR250T2 PO (18:58)
--- NOTE | 2016-05-05 18:58 | HHI.DCPOC ---
Discharge Care Plan Diagnosis: (1) TIA (transient ischemic attack) (2) Subdural hemorrhage (3) HTN (hypertension) (4) UTI (urinary tract infection) Goals to Promote Your Health * To prevent worsening of your condition and complications * To maintain your health at the optimal level Directions to Meet Your Goals Take your medications as prescribed Follow your dietary instruction Follow activity as directed Keep your appointments as scheduled Take your immunizations and boosters as scheduled If your symptoms worsen call your PCP, if no PCP go to Urgent Care Center or Emergency Room Smoking is Dangerous to Your Health. Avoid second hand smoke Call the 24-hour hour crisis hotline for domestic abuse at Sunny Michaels MD May 05, 2016 18:58
--- NOTE | 2016-05-05 19:02 | EC ---
Study Study Date:05/05/2016 STUDY CONCLUSIONS SUMMARY - Left ventricle: The cavity size was normal. Wall thickness was normal. Systolic function was normal. The estimated ejection fraction was in the range of 60% to 65%. Wall motion was normal; there were no regional wall motion abnormalities. Doppler parameters are consistent with abnormal left ventricular relaxation (grade 1 diastolic dysfunction). - Aortic valve: Trace regurgitation. - Mitral valve: Mild regurgitation. - Tricuspid valve: Mild regurgitation. If LV function is below 40, please consider prescribing an ACEI or ARB or document rationale for non-use. PROCEDURE DATA STUDY STATUS: Elective. Procedure: Transthoracic echocardiography. Image quality was good. Scanning was performed from the parasternal, apical, and subcostal acoustic windows. Study completion: The patient tolerated the procedure well. Transthoracic echocardiography. M-mode, complete 2D, complete spectral Doppler, and color Doppler. Height: Height: 63in. Weight: Weight: 144.7lb. Body mass index: BMI: 25.7kg/m^2. Body surface area: BSA: 1.69m^2. Patient status: Inpatient. CARDIAC ANATOMY LEFT VENTRICLE: The cavity size was normal. Wall thickness was normal. Systolic function was normal. The estimated ejection fraction was in the range of 60% to 65%. Wall motion was normal; there were no regional wall motion abnormalities. Doppler parameters are consistent with abnormal left ventricular relaxation (grade 1 diastolic dysfunction). AORTIC VALVE: The valve appears to be grossly normal. [place]. Doppler: There was no stenosis. Trace regurgitation. Valve area: 1.63cm^2(VTI). Indexed valve area: 0.96cm^2/m^2 (VTI). Valve area: 1.68cm^2 (Vmax). Indexed valve area: 0.99cm^2/m^2 (Vmax). Mean gradient: 4mm Hg (S). MITRAL VALVE: The valve appears to be grossly normal. Doppler: There was no evidence for stenosis. Mild regurgitation. Peak gradient: 2mm Hg (D). LEFT ATRIUM: The atrium was normal in size. RIGHT VENTRICLE: The cavity size was normal. Systolic function was normal. PULMONIC VALVE: Not well visualized. Doppler: There was no evidence for stenosis. Trace regurgitation. TRICUSPID VALVE: The valve appears to be grossly normal. Doppler: There was no evidence for stenosis. Mild regurgitation. PERICARDIUM: There was no pericardial effusion. Patient weight: 144.7lb _Ejection fraction:_ 65-75% _Fractional shortening:_ 32% up to 5Kg 5-11.5Kg 11.6-22.9Kg 23-45Kg 45-57Kg Aortic Root 7-13 <17 13-22 17-27 17-27 LA diam 6-13 <23 24-38 33-47 37-40 RVID 10-17 7-15 7-15 7-18 8-17 LVIDd 12-22 <32 24-38 33-47 37-40 LVPW 2-4 3-6 5-7 6-8 7-8 IVS 2-4 3-6 5-7 6-8 7-8 BASIC MEASUREMENTS ADULT NORMAL Left ventricle LV internal dimension, ED, chordal *39.6 mm 43-52 level, PLAX LV internal dimension, ES, chordal 23.6 mm 23-38 level, PLAX Fractional shortening, chordal level, 40 % >29 PLAX LV posterior wall thickness, ED 9.29 mm IVS/LVPW ratio, ED 0.99 <1.3 Ventricular septum Septal thickness, ED 9.24 mm Aortic valve Leaflet separation 19 mm 15-26 Aorta Root diameter, ED 34 mm Left atrium Anterior-posterior dimension 22 mm Anterior-posterior dimension index 1.3 cm/m^2 <2.2 BASIC MEASUREMENTS ADULT NORMAL Aortic valve Leaflet separation 19 mm 15-26 DOPPLER MEASUREMENTS ADULT NORMAL Main pulmonary artery Pressure, S *32 mm Hg =30 Aortic valve Peak velocity, S 131 cm/s Mean velocity, S 96.3 cm/s VTI, S 25.3 cm Mean gradient, S 4 mm Hg Valve area, VTI 1.63 cm^2 Valve area index, VTI 0.96 cm^2/m^2 Valve area, Vmax 1.68 cm^2 Valve area index, Vmax 0.99 cm^2/m^2 Mitral valve Peak E-wave velocity 72.6 cm/s Peak A-wave velocity 94.3 cm/s Deceleration time 215 ms 150-230 Peak gradient, D 2 mm Hg Peak E/A ratio 0.8 Tricuspid valve Regurgitant peak velocity 255 cm/s Peak RV-RA gradient, S 26 mm Hg Maximal regurgitant velocity 255 cm/s Systemic veins Estimated CVP 5 mm Hg Right ventricle RV pressure, S *33 mm Hg <30 Pulmonic valve Peak velocity, S 53.4 cm/s LEGEND: Mean values are shown as u=mean value. Asterisk (*) garrison values outside specified normal range. Prepared and signed by Bin Borden [id number]
--- NOTE | 2016-05-11 08:26 | HM ---
Date Performed: 05/05/2016 Time Performed: 20:56:00 HOOKUP DATE: 05/05/16 08:56:00 PM Khadijah ANALYSIS START TIME: 05/05/2016 9:01:00 PM ANALYSIS END TIME: 05/06/2016 8:10:53 PM PATIENT AGE: 86 PATIENT HEIGHT PATIENT WEIGHT DRUG LIST PATIENT DIAGNOSIS TEST NARRATIVE: The patient's average heart rate was 84 BPM. No episodes of tachycardia wer e noted. No episodes of bradycardia were noted. No pauses exceeding 2.0 seconds were noted. 1 ventricular ectopics, which represented < 1% of the total beat count, were noted. The highest vent ricular ectopic frequency occurred from 12:00 PM to 01:00 PM Fri. During this time 1 VE(s) occurred. Ventricular ectopics were observed as 1 isolated beat(s) only. No couplets or runs were noted. 33 supraventricular ectopics, which represented < 1% of the total beat count, were noted. The highe st supraventricular ectopic frequency occurred from 09:00 PM to 10:00 PM Khadijah. During this time 5 SVE (s) occurred. No episodes of ST depression (defined as -1.0 mm or more) were noted in channel 1. No episodes of ST depression (defined as -1.0 mm or more) were noted in channel 2. No episodes of S T depression (defined as -1.0 mm or more) were noted in channel 3. TEST INTERPRETATION: The patient undergoes a Holter monitor for unstated reasons. No diary is pr ovided. Only the expanded tracings are subject to interpretation. The expanded tracings all show Sinu s rhythm with rare PACs and PVCs. There is one 3 beat episode of nonsustained supraventricular tachycardia. N o Donny arrhythmias are noted. CONCLUSIONS: 1. Normal sinus rhythm with a heart rate varying from 58- 114 beats per minute. 2. Rare PACs and PVCs. 3. No significant tachy or Donny arrhythmias. 4. No diar y provided so it is unknown as to whether the patient is symptomatic. Signed by : Sidra Simmons
[2016-05-12] MEDS ORDERED: DIAZ5 PO (15:52)
[2016-05-17] MEDS ORDERED: LYRI50CA PO (15:04)
[2016-05-18] MEDS ORDERED: GABA300C5 PO (15:07)
[2016-08-04] MEDS ORDERED: HYDR-3799 PO (12:53)
[2016-08-04] MEDS ORDERED: ASPI81CH CHEW (12:53)
[2016-08-08] MEDS ORDERED: HYDR-3533 PO (10:03)
== END 2016-05-05 19:15 | disposition home or self-care (01) ==
LOC: PHED 11:43 → PHEDA 14:12 → PHEDH 18:12 → PH3A 21:27
PROVIDERS: ADMIT Family Medicine; ATTEND Family Medicine
DX: R20.0 Anesthesia of skin (principal); I16.0 Hypertensive urgency; N17.9 Acute kidney failure, unspecified; E87.1 Hypo-osmolality and hyponatremia; E78.5 Hyperlipidemia, unspecified; N39.0 Urinary tract infection, site not specified; E03.9 Hypothyroidism, unspecified; M50.30 Other cervical disc degeneration, unspecified cervical region; M51.36 Other intervertebral disc degeneration, lumbar region; E78.00 Pure hypercholesterolemia, unspecified; F41.9 Anxiety disorder, unspecified; Z98.1 Arthrodesis status; Z79.82 Long term (current) use of aspirin; Z88.5 Allergy status to narcotic agent; Z88.2 Allergy status to sulfonamides; Z88.8 Allergy status to other drugs, medicaments and biological substances; Z91.041 Radiographic dye allergy status; Z82.3 Family history of stroke
CPT/HCPCS: 70450; 70544; 70551; 71010; 80048; 80053; 80061; 81001; 82550; 82948; 83036; 84443; 84484; 85025; 85610; 85730; 87077; 87086; 87186; 93005; 93225; 93226; 93306; 93880; 96365; G0378; G8987-GO; G8987-GP; G8988-GO; G8988-GP; G8989-GO; J0696; J1644; J2060; J7030

== ENCOUNTER 2016-05-07 10:09 | Emergency (ER) | payer MEDICARE ==
[~2016-05-07] VITALS: Ht 160 cm; Wt 65.0 kg
[~2016-05-07 10:09] MED LIST changes: -ACET325 PO; +ATEN25TA PO; +CIPR250T2 PO; -CYAN25003 PO; -DOCU1CAP39 PO; -DUONI INH; -HYDR10SO PO; +HYDR25TA35 PO; +IRBE300T44 PO; +LIPI40TA PO; -METO25 PO; -MVI PO; -OXYC1SOL5 PO; -PROT40TA PO; +SPIR25TA PO; -VITA200017 PO; -WALKER ROLLING
[2016-05-07 10:17] VITALS: BP 205/92; PULSE 73; RESP 16; TEMP 98.3; O2SAT 98
[2016-05-07 10:25] VITALS: BP 186/81; PULSE 76; RESP 16; O2SAT 98
--- NOTE | 2016-05-07 10:43 | PD ---
HPI Chief Complaint: Numbness/Tingling Time Seen by Provider: 10:23 Travel History International Travel<30 days: No Contact w/Intl Traveler<30days: No Traveled to known affect area: No History of Present Illness HPI The patient was seen and examined in the presence of the nurse. This patient complains of numbness in fingers 2 through 5 over left hand and the left side of her face in the region of her cheek. She woke up this morning feeling fine. The symptoms developed and she got nervous and her called 911. 5 minutes later the symptoms completely resolved. She's been asymptomatic since then. She has no headache. She was discharged from the hospital yesterday for stroke evaluation. She was found to have a minor 3-5 mm subdural hemorrhage on MRI. She has a appointment with neurosurgery in 5 days for follow-up. She is not on any blood thinners. Symptoms severity was fairly mild. No alleviating factors, it did resolve spontaneously. Duration was 5 minutes PFSH Past Medical History Arthritis: No Asthma: No Autoimmune Disease: No Blood Disorders: No Anxiety: No Depression: No Heart Rhythm Problems: No Cancer: No Cardiac Catheterization: Yes ("[address] KAT, HERE AT [facility]") Cardiovascular Problems: Yes High Cholesterol: Yes Chemotherapy: No Chest Pain: No Congestive Heart Failure: No COPD: No Cerebrovascular Accident: No Diabetes: No Diminished Hearing: Yes (TARA HEARING AIDS ) Endocrine: No Gastrointestinal Disorders: Yes GERD: No Genitourinary: Yes Headaches: Yes Hepatitis: Yes (VIRAL (A)) Hiatal Hernia: No Hypertension: Yes Immune Disorder: No Kidney Stones: No Musculoskeletal: Yes Neurologic: No Psychiatric: No Reproductive: No Respiratory: No Migraines: No Radiation Therapy: No Renal Failure: No Seizures: No Sickle Cell Disease: No Sleep Apnea: No Thyroid Disease: Yes (HYPOTHYROID) Ulcer: No Tetanus Vaccination: Unknown Influenza Vaccination: Yes ?: Not Menopausal: Yes Past Surgical History Abdominal Surgery: Yes AICD: No Appendectomy: Yes Arteriovenous Shunt: No Body Medical Devices: CERVICAL/ LUMBAR HARDWARE Cardiac Surgery: No Cholecystectomy: Yes (1984) Coronary Artery Bypass Graft: No Ear Surgery: Yes Endocrine Surgery: No Eye Surgery: Yes (TARA. CATARACT. EXTRACT.) Genitourinary Surgery: No Gynecologic Surgery: Yes Hysterectomy: Yes Insulin Pump: No Joint Replacement: No Neurologic Surgery: Yes (NECK SURGERY , BACK 2001) Oral Surgery: No Pacemaker: No Thoracic Surgery: No Tonsillectomy: Yes Other Surgery: Yes Social History Alcohol Use: Yes (OCCAISIONAL SOCIAL) Tobacco Use: No Substance Use: No Allergies-Medications (Allergen,Severity, Reaction): Coded Allergies: Norvasc (Verified Allergy, Severe, 05/07/16) Sulfa (Verified Allergy, Severe, 05/07/16) Vasotec (Verified Allergy, Severe, 05/07/16) Zestril (Verified Allergy, Severe, 05/07/16) Codeine (Verified Allergy, Intermediate, 05/07/16) Demerol (Verified Allergy, Unknown, 05/07/16) Iodine (Verified Allergy, Unknown, 05/07/16) 04/16/14--RASH Irbesartan (Verified Allergy, Unknown, RASH, 05/07/16) 04/16/14 DENIES ALLERGY Dilaudid (Verified Adverse Reaction, Severe, "CLIMBS THE CEILING", 05/07/16 ) Reported Meds & Prescriptions Reported Meds & Active Scripts Active Ciprofloxacin (Ciprofloxacin HCl) 250 Mg Tab 250 Mg PO BID Lipitor (Atorvastatin Calcium) 40 Mg Tab 40 Mg PO DAILY Reported Hydralazine (Hydralazine HCl) 25 Mg Tab 12.5 Mg PO DAILY@1600 Take with a meal Avapro (Irbesartan) 300 Mg Tab 300 Mg PO DAILY Levothyroxine (Levothyroxine Sodium) 75 Mcg Tab 75 Mcg PO DAILY Atenolol 25 Mg Tab 25 Mg PO DAILY Spironolactone 25 Mg Tab 25 Mg PO DAILY Estradiol 1 Mg Tab 1 Mg PO DAILY Detrol LA (Tolterodine Tartrate) 4 Mg Cap 4 Mg PO DAILY Review of Systems General / Constitutional: No: Fever Eyes: No: Visual changes HENT: No: Headaches Cardiovascular: No: Chest Pain or Discomfort Respiratory: No: Shortness of Breath Gastrointestinal: No: Abdominal Pain Genitourinary: No: Dysuria Musculoskeletal: No: Pain Skin: No Rash Neurologic: Positive: Sensory Disturbance, No: Weakness Psychiatric: No: Depression Endocrine: No: Polydipsia Hematologic/Lymphatic: No: Easy Bruising Physical Exam Narrative GENERAL: Well-nourished, well-developed patient in no apparent distress. SKIN: Warm and dry. HEAD: Atraumatic. Normocephalic. EYES: Pupils equal and round. No scleral icterus. No injection or drainage. ENT: No nasal bleeding or discharge. Mucous membranes pink and moist. NECK: Trachea midline. No JVD. CARDIOVASCULAR: Regular rate and rhythm. No murmur appreciated. RESPIRATORY: No accessory muscle use. Clear to auscultation. Breath sounds equal bilaterally. GASTROINTESTINAL: Abdomen soft, non-tender, nondistended. Hepatic and splenic margins not palpable. MUSCULOSKELETAL: No obvious deformities. No clubbing. No cyanosis. No edema. NEUROLOGICAL: Awake and alert. No obvious cranial nerve deficits. Motor grossly within normal limits. Normal speech. PSYCHIATRIC: Appropriate mood and affect; insight and judgment normal. Data Data Last Documented VS Vital Signs Date Time Temp Pulse Resp B/P Pulse Ox O2 Delivery O2 Flow Rate FiO2 05/07/16 11:47 68 16 157/82 97 Room Air 05/07/16 10:17 98.3 Orders Electrocardiogram (05/07/16 ) Ct Brain W/O Iv Contrast(Rout) (05/07/16 ) Iv Access Insert/Monitor (05/07/16 10:40) Complete Blood Count With Diff (05/07/16 10:40) Basic Metabolic Panel (Bmp) (05/07/16 10:40) Labs Laboratory Tests Test 05/07/16 11:02 White Blood Count 5.8 TH/MM3 Red Blood Count 4.43 MIL/MM3 Hemoglobin 14.0 GM/DL Hematocrit 39.5 % Mean Corpuscular Volume 89.1 FL Mean Corpuscular Hemoglobin 31.5 PG Mean Corpuscular Hemoglobin 35.4 % Concent Red Cell Distribution Width 13.0 % Platelet Count 333 TH/MM3 Mean Platelet Volume 7.4 FL Neutrophils (%) (Auto) 57.6 % Lymphocytes (%) (Auto) 29.4 % Monocytes (%) (Auto) 10.5 % Eosinophils (%) (Auto) 2.1 % Basophils (%) (Auto) 0.4 % Neutrophils # (Auto) 3.4 TH/MM3 Lymphocytes # (Auto) 1.7 TH/MM3 Monocytes # (Auto) 0.6 TH/MM3 Eosinophils # (Auto) 0.1 TH/MM3 Basophils # (Auto) 0.0 TH/MM3 CBC Comment DIFF FINAL Differential Comment Sodium Level 134 MEQ/L Potassium Level 4.2 MEQ/L Chloride Level 101 MEQ/L Carbon Dioxide Level 23.8 MEQ/L Anion Gap 9 MEQ/L Blood Urea Nitrogen 9 MG/DL Creatinine 0.92 MG/DL Estimat Glomerular Filtration 58 ML/MIN Rate Random Glucose 83 MG/DL Calcium Level 9.4 MG/DL MDM Medical Decision Making Medical Screen Exam Complete: Yes Emergency Medical Condition: Yes Medical Record Reviewed: Yes Differential Diagnosis Intracranial hemorrhage, TIA, CVA Narrative Course I have reviewed the patient's electronic medical record. Reviewed her neurologic workup from hospitalization that ended yesterday. She had CT of brain and CTA as well as brain MRI Patient is no objective neurologic findings on exam. Her symptoms have resolved. Today's brain CT is normal On recheck she is feeling fine She is going to call her neurosurgeon Monday morning to see if they want to move her appointment up. If she has significant worsening will return Diagnosis Primary Impression: Acute focal neurological deficit, onset within 3 hours Additional Impression: Subdural hematoma Additional Instructions: The patient was advised to follow up with their physician and return if they worsen. Follow-up with neurosurgeon Med/Other Pt SpecificInfo: Other Disposition: 01 DISCHARGE HOME Condition: Stable Sunny James MD May 07, 2016 10:43
[2016-05-07 11:16] LABS: AUTOMATED NEUTROPHIL # 3.4 TH/MM3 (1.8-7.7); BASOPHIL % 0.4 % (0.0-2.0); EOSINOPHIL # 0.1 TH/MM3 (0-0.4); EOSINOPHIL % 2.1 % (0.0-4.0); HEMATOCRIT 39.5 % (35.0-46.0); HEMO FLAGS DIFF FINAL; LYMPH % 29.4 % (9.0-44.0); LYMPHOCYTE # 1.7 TH/MM3 (1.0-4.8); MEAN CELL VOLUME 89.1 FL (80.0-100.0); MEAN CORPUSCULAR HEMOGLOBIN 31.5 PG (27.0-34.0); MEAN CORPUSCULAR HGB CONC 35.4 % (32.0-36.0); MONO % 10.5 % (0.0-8.0); NEUT % 57.6 % (16.0-70.0); PLATELET COUNT 333 TH/MM3 (150-450); RED BLOOD COUNT 4.43 MIL/MM3 (4.00-5.30); WHITE BLOOD COUNT 5.8 TH/MM3 (4.0-11.0)
[2016-05-07 11:47] VITALS: BP 157/82; PULSE 68; RESP 16; O2SAT 97
[2016-05-07 11:51] LABS: BICARBONATE 23.8 MEQ/L (21.0-32.0); POTASSIUM 4.2 MEQ/L (3.5-5.1)
--- NOTE | 2016-05-07 12:10 | RADRPT ---
EXAM DATE/TIME: 05/07/2016 11:13 [facility] COMPARISON: CT BRAIN W/O CONTRAST, May 04, 2016, 12:37. INDICATIONS : Evaluate hemorrhage. RADIATION DOSE: 56.35 CTDIvol (mGy) MEDICAL HISTORY : Brain hemorrhage. SURGICAL HISTORY : None. ENCOUNTER: Initial ACUITY: 2 days PAIN SCALE: 3/10 LOCATION: cranial TECHNIQUE: Multiple contiguous axial images were obtained of the head. Using automated exposure control and adj ustment of the mA and/or kV according to patient size, radiation dose was kept as low as reasonably a chievable to obtain optimal diagnostic quality images. FINDINGS: CEREBRUM: The ventricles are normal for age. No evidence of midline shift, mass lesion, hemorrhage or acute in farction. No extra-axial fluid collections are seen. Stable bilateral periventricular white matter a trophic changes. POSTERIOR FOSSA: The cerebellum and brainstem are intact. The 4th ventricle is midline. The cerebellopontine angle i s unremarkable. EXTRACRANIAL: The visualized portion of the orbits is intact. SKULL: The calvaria is intact. No evidence of skull fracture. CONCLUSION: Age-related white matter changes. No evidence of hemorrhage. No evidence of mass.. Shanna Hansen MD on May 07, 2016 at 12:07 Board Certified Radiologist. This report was verified electronically.
--- NOTE | 2016-05-07 17:29 | EKG ---
Date Performed: 05/07/2016 Time Performed: 10:28:05 PTAGE: 86 years EKG: Sinus rhythm Suspect error in lead placement for V6, but otherwise no change from the prior tracing NORMAL ECG PREVIOUS TRACING : 05/04/2016 12.00 DOCTOR: Juancho Palmer Interpretating Date/Time 05/07/2016 17:28:19
[2016-05-12] MEDS ORDERED: DIAZ5 PO (15:52)
[2016-05-17] MEDS ORDERED: LYRI50CA PO (15:04)
[2016-05-18] MEDS ORDERED: GABA300C5 PO (15:07)
[2016-08-04] MEDS ORDERED: ASPI81CH CHEW (12:53)
[2016-08-04] MEDS ORDERED: HYDR-3799 PO (12:53)
[2016-08-08] MEDS ORDERED: HYDR-3533 PO (10:03)
== END 2016-05-07 13:57 | disposition home or self-care (01) ==
LOC: NEPE 10:09
DX: R29.818 Other symptoms and signs involving the nervous system (principal); I62.00 Nontraumatic subdural hemorrhage, unspecified; I10 Essential (primary) hypertension
CPT/HCPCS: 70450; 80048; 85025; 93005

== ENCOUNTER → 2016-08-04 | Outpatient (CLI) | payer MEDICARE ==
[~2016-08-04] MED LIST changes: +ASPI81CH CHEW; -CLAR5TAB PO; +DIAZ5 PO; +GABA300C5 PO; +HYDR-3533 PO; +HYDR-3799 PO; +LYRI50CA PO
[2016-08-04 13:16] LABS: APTT (PATIENT) 25.6 SEC (24.3-30.1); INTERNATIONAL NORMALIZED RATIO 0.9 RATIO; PROTHROMBIN TIME - PATIENT 9.8 SEC (9.8-11.6)
[2016-08-04 13:25] LABS: AUTOMATED NEUTROPHIL # 5.7 TH/MM3 (1.8-7.7); BASOPHIL % 0.4 % (0.0-2.0); EOSINOPHIL # 0.1 TH/MM3 (0-0.4); EOSINOPHIL % 0.7 % (0.0-4.0); HEMATOCRIT 39.4 % (35.0-46.0); HEMO FLAGS DIFF FINAL; LYMPH % 16.8 % (9.0-44.0); LYMPHOCYTE # 1.3 TH/MM3 (1.0-4.8); MEAN CORPUSCULAR HEMOGLOBIN 30.9 PG (27.0-34.0); MEAN CORPUSCULAR HGB CONC 34.3 % (32.0-36.0); MONO % 10.5 % (0.0-8.0); NEUT % 71.6 % (16.0-70.0); PLATELET COUNT 397 TH/MM3 (150-450); RED BLOOD COUNT 4.37 MIL/MM3 (4.00-5.30); RED CELL DISTRIBUTION WIDTH 13.2 % (11.6-17.2)
[2016-08-04 13:26] LABS: BLOOD, URINE NEG (NEG); COMMENT (UR) CULT NOT INDICATED; CULTURE IF INDICATED CULT NOT INDICATED; GLUCOSE,URINE NEG (NEG); KETONE, URINE NEG (NEG); NITRITE,URINE NEG (NEG); SQUAMOUS EPITHELIAL CELL URINE 1 /hpf (0-5); URINE COLOR YELLOW (YELLW/STRAW)
[2016-08-04 13:33] LABS: ANION GAP 9 MEQ/L (5-15); AST (GOT) 19 U/L (15-37); BICARBONATE 26.3 MEQ/L (21.0-32.0); BLOOD UREA NITROGEN 17 MG/DL (7-18); CHLORIDE 92 MEQ/L (98-107); GLOMERULAR FILTRATION RATE 52 ML/MIN (>89); GLUCOSE,FASTING 73 MG/DL (74-99); POTASSIUM 4.7 MEQ/L (3.5-5.1); SODIUM (NA) 127 MEQ/L (136-145)
[2016-08-04 13:34] LABS: ALT (GPT) 19 U/L (10-53)
[2016-08-04 13:36] LABS: ALKALINE PHOSPHATASE 69 U/L (45-117); TOTAL BILIRUBIN ADULT 0.5 MG/DL (0.2-1.0)
== END ==
LOC: CPRE 12:09
PROVIDERS: ATTEND Neurological Surgery
DX: Z01.812 Encounter for preprocedural laboratory examination (principal); M51.16 Intervertebral disc disorders with radiculopathy, lumbar region; Z79.01 Long term (current) use of anticoagulants
CPT/HCPCS: 36415; 80053; 81001; 85025; 85610; 85730

== ENCOUNTER → 2016-08-08 | Day surgery (SDC) | payer MEDICARE ==
--- NOTE | 2016-08-04 18:24 | MH ---
cc: MARI SMITH M.D. DATE OF ADMISSION: 08/08/2016 ADMITTING DIAGNOSIS Herniated nucleus pulposus lumbar spine. HISTORY OF PRESENT ILLNESS This is an 86-year-old female who presented to us for an evaluation of right leg pain. She states the pain started over a year ago in about April of 2015 when she tried physical therapy for about 6-8 weeks which was not helping. She underwent pain management and had injections with Dr. Borrego. She states her pain resolved but eventually the pain returned. She states that she has been told she cannot have any further injections. She states the pain radiates from the right anterior thigh down the anterior giordano to the ankle. She rates her pain as 10/10. She states the pain is present when she is standing or walking and resolves with sitting or lying down. She denies any low back pain. She denies any numbness or tingling in her leg. She denies any left lower extremity symptoms. The patient did see an additional pain specialist and had another injection which again helped with her pain but they do not last very long. The patient had gotten back recently from a trip where she did a lot of ambulating and she is starting to have recurrent right leg pain. The patient states that this pain is affecting her life and she is requesting that we proceed with surgical intervention. PAST MEDICAL HISTORY 1. Hypertension. 2. Hypothyroidism. 3. Decreased GFR. 4. History of a subdural hemorrhage managed nonsurgically. 5. Also had a history of L4-L5 interbody fusion with right pedicle screws. 6. Cholecystectomy. 7. Appendectomy. 8. Hysterectomy. 9. Tonsillectomy. CURRENT MEDICATIONS 1. Diazepam 5 mg p.o. p.r.n. anxiety. 2. Hydralazine 12.5 mg p.o. daily. 3. Avapro 300 mg p.o. daily. 4. Levothyroxine 75 mcg p.o. daily. 5. Atenolol 25 mg p.o. daily. 6. Spironolactone 25 mg p.o. daily. 7. Estradiol 1 mg p.o. daily. 8. Detrol LA 4 mg p.o. daily. ALLERGIES SHE IS ALLERGIC TO NORVASC, SULFA, VASOTEC, ZESTRIL, CODEINE, DEMEROL, IODINE, AND DILAUDID. SOCIAL HISTORY She is retired. She has four children. She lives with her spouse. She drinks alcohol on a social basis. FAMILY HISTORY Her mother is , she is unsure of the cause. Her father is at 23 years old, had TB. Her sister is at 49 years old, had a history of hypertension and heart attack. REVIEW OF SYSTEMS CONSTITUTIONAL: She denies any fever or chills. EYES: No diplopia or blurred vision. EARS, NOSE AND THROAT: No pharyngitis, exudates or blood drainage from her nose. CARDIOVASCULAR: She denies any chest pain or palpitations. RESPIRATORY: No cough or shortness of breath. GASTROINTESTINAL: No nausea, vomiting or abdominal pain. GENITOURINARY: No dysuria or hematuria. MUSCULOSKELETAL: Positive for right leg pain. NEUROLOGIC: No difficulty with speech. PSYCHIATRIC: No anxiety or depression symptoms. ENDOCRINE: No polyuria or polydipsia. HEMATOLOGIC: No bruising or bleeding tendencies. PHYSICAL EXAMINATION HEAD: Normocephalic, atraumatic. NECK: Supple. No carotid bruits heard on auscultation. LUNGS: Clear to auscultation bilaterally. HEART: Regular, rate and rhythm. Normal S1 and S2. ABDOMEN: Soft and nontender. Positive bowel sounds. SKIN: Reveals no cyanosis or erythema. MUSCULOSKELETAL: She has 5/5 strength in the lower extremities. NEUROLOGIC: She is awake, alert and oriented. Cranial nerves II through XII are grossly intact. Her speech is fluent. Comprehension is good. Sensation is intact in the extremities. Reflexes are 2+ in the upper and lower extremities. DATA REVIEW MRI of the lumbar spine from May 13, 2016 reveals postoperative changes at the L4-L5 level with interbody fusion and right-sided pedicle screws. At the right L2-L3 level there is a laminectomy defect and foraminal stenosis from disc protrusion and facet hypertrophy. IMPRESSION An 86-year-old female with complaints of right paraspinal and buttock pain radiating to the right thigh from a right L2-L3 disc protrusion, facet arthropathy and foraminal stenosis. She responded to transforaminal injection but each time lasted only about a month or so. She states that she cannot live with her current discomfort and activity restrictions and is requesting surgical intervention. PLAN We have discussed the procedure which involves a right L2-L3 foraminotomy with microdiscectomy. The procedure as well as the risk, benefit, alternative and recovery time were explained in great detail with the patient. She understands that given the multilevel degenerative disc disease and facet osteoarthritis she may have ongoing pain related to this. We have discussed the risks involved with surgery include but not limited to bleeding, infection, muscle weakness, voice hoarseness, difficulty swallowing, heart attack, stroke, blood clots, poor healing, among others. The patient states that she understands these risks and she is requesting that we proceed and she was therefore scheduled accordingly. DICTATED BY: Karel Chauhan PA-C MD GILBERT Reyez/JORDANA /5:32 PM /5:54 PM
[~2016-08-08] VITALS: Ht 160 cm; Wt 62.9 kg
[~2016-08-08] MED LIST changes: +ACETAMINOPHEN 1000 MG/100 ML VIAL IV ONE; +ARTIFICIAL TEARS OPTH OINT 3.5 APPLIC/3.5 GM TUBO ONE; +CHLORHEXIDINE GLUCONATE 2 % 1 PACK (2 CLOTHS) TOPICAL PRN; -CIPR250T2 PO; -DIAZ5 PO; -GABA300C5 PO; +GELFOAM SIZE 100 ONE; -HYDR25TA35 PO; +INSULIN HUMAN REGULAR 1,000 UNITS/10 ML VIAL SQ PRN; +LACTATED RINGER'S 1000 ML IV PRN; -LYRI50CA PO; +METOPROLOL TARTRATE 25 MG TAB PO PRN; +MIDAZOLAM HCL 2 MG/2 ML VIAL ONE; +NEOSTIGMINE 3 MG/3 ML SYR IV ONE; +ONDANSETRON HCL 4 MG/2 ML VIAL IV PUSH ONE; +PROPOFOL 200 MG/20 ML AMP IV ONE; +SODIUM CHLOR 0.9% 1000 ML INJ 1,000 ML IV SCH; +SODIUM CHLORID 0.9% 500 ML IV PRN; +THROMBIN (TOPICAL) 5,000 UNIT VIAL ONE; +VANCOMYCIN HCL 1000 MG ON-CALL/NS 250 ML IV SCH; +VANCOMYCIN HCL 1000 MG VIAL ONE; +ePHEDrine/NS 25 MG/5 ML SYR IV ONE; +fentaNYL CITRATE 250 MCG/5 ML AMP ONE; +methylPREDNISolone ACETATE 40 MG/ML VIAL ONE
[2016-08-08 07:37] VITALS: BP 141/82; PULSE 68; RESP 16; TEMP 97.9; O2SAT 99
[2016-08-08] MEDS: BUPIVACAINE/EPINEPHRINE 0.5% PF 30 ML VIAL INFIL ONE ×2 (09:06→09:38)
--- NOTE | 2016-08-08 10:09 | PD.OP ---
cc: Citlali Ordoñez Jr., MD Operative Report Date of Surgery: Aug 08, 2016 Preoperative Diagnosis: Right L2-3 foraminal stenosis from facet hypertrophy and disc protrusion with intractable radiculopathy Postoperative Diagnosis: Same Procedure: Right lateral lumbar L2-3 foraminotomy with microdiscectomy; microsurgical technique Anesthesia: Gen. endotracheal by Laurie Scott Surgeon: Master Su M.D. Bag Sealer(s): Kaia Hartmann Operation and Findings: Following administration of general endotracheal anesthesia, patient received vancomycin 1 g intravenously. Sequential compression devices were placed for DVT prophylaxis. She was then turned in prone position on Spencer frame and the Willie table and all pressure points adequately padded. The lumbar region was then shaved and prepped with a Betadine and ChloraPrep. Sterile draping undertaken with Ioban. Midline incision overlying the previous site L2-3 level was then made after infiltrating the skin with 0.5% Marcaine with epinephrine solution. The skin incision was made extending down through the fascia and then using the subperiosteal plane on the right side the muscular attachments to the facet were detached. Intraoperative fluoroscopy was used for level confirmation and further dissection undertaken using microtechnique with microscope magnification. Lateral portion of the right L2-3 facet was drilled out and the underlying exiting L2 nerve root identified which was decompressed with removal of the facet hypertrophy and disc protrusion with microdiscectomy and taken using pituitary forceps. Epidural venous stasis which he with the bipolar cautery along with Gelfoam and thrombin and bone wax used at the foraminotomy edges for hemostasis. The area was then copiously irrigated with vancomycin solution. Depo-Medrol 40 mg was also injected the nerve in the epidural space. The retractors removed and the muscle fascia proximal using 2-0 Vicryl interrupted stitches. 3-0 Vicryl subcuticular stitches were also placed in an interrupted fashion and planned skin closure was with Mastisol and Steri- Strips. A sterile dressing was then applied and the patient then turned in the supine position and extubated and taken to recovery room in stable condition. There were no intraoperative complications and all sponge and needle count was correct at the end of the procedure. Estimated blood loss about 10ml. Master Su MD Aug 08, 2016 10:09
--- NOTE | 2016-08-08 10:48 | RADRPT ---
EXAM DATE/TIME: 08/08/2016 08:44 [facility] COMPARISON: SPINE LUMBAR LATERAL ONLY, March 28, 2013, 9:58. INDICATIONS : Herniated disk, microdiskectomy. MEDICAL HISTORY : None. SURGICAL HISTORY : None. ENCOUNTER: Initial ACUITY: 1 day PAIN SCORE: 0/10 LOCATION: Lumbar spine. FINDINGS: 2 lateral spot fluoroscopic images obtained in the operating room during a procedure demonstrate post erior spinal hardware at L4-L5 with decreased disc height and minimal anterolisthesis. Instruments ov erlie the posterior elements at L2-L3 where there is decreased disc height and slight retrolisthesis. CONCLUSION: Instruments overlie the posterior elements at L2-L3. Wade Cordova MD on August 08, 2016 at 10:32 Board Certified Radiologist. This report was verified electronically.
[2016-08-08 11:35] VITALS: BP 156/77; PULSE 59; RESP 18; TEMP 97; O2SAT 98
== END | disposition home or self-care (01) ==
LOC: HSDC 05:58
PROVIDERS: ATTEND Neurological Surgery
DX: M51.26 Other intervertebral disc displacement, lumbar region (principal); M48.06 Spinal stenosis, lumbar region; Z79.899 Other long term (current) drug therapy; I10 Essential (primary) hypertension; E03.9 Hypothyroidism, unspecified; Z98.1 Arthrodesis status; M54.16 Radiculopathy, lumbar region
CPT/HCPCS: 00630; 63030; 72020; 76000; J0131; J1030; J2250; J2405; J2710; J3010; J3370; J7050; J7120

== ENCOUNTER → 2016-08-22 | Outpatient (CLI) | payer MEDICARE ==
[~2016-08-22] MED LIST changes: -ACETAMINOPHEN 1000 MG/100 ML VIAL IV ONE; -ARTIFICIAL TEARS OPTH OINT 3.5 APPLIC/3.5 GM TUBO ONE; -CHLORHEXIDINE GLUCONATE 2 % 1 PACK (2 CLOTHS) TOPICAL PRN; -GELFOAM SIZE 100 ONE; -INSULIN HUMAN REGULAR 1,000 UNITS/10 ML VIAL SQ PRN; -LACTATED RINGER'S 1000 ML IV PRN; -METOPROLOL TARTRATE 25 MG TAB PO PRN; -MIDAZOLAM HCL 2 MG/2 ML VIAL ONE; -NEOSTIGMINE 3 MG/3 ML SYR IV ONE; -ONDANSETRON HCL 4 MG/2 ML VIAL IV PUSH ONE; -PROPOFOL 200 MG/20 ML AMP IV ONE; -SODIUM CHLOR 0.9% 1000 ML INJ 1,000 ML IV SCH; -SODIUM CHLORID 0.9% 500 ML IV PRN; -THROMBIN (TOPICAL) 5,000 UNIT VIAL ONE; -VANCOMYCIN HCL 1000 MG ON-CALL/NS 250 ML IV SCH; -VANCOMYCIN HCL 1000 MG VIAL ONE; -ePHEDrine/NS 25 MG/5 ML SYR IV ONE; -fentaNYL CITRATE 250 MCG/5 ML AMP ONE; -methylPREDNISolone ACETATE 40 MG/ML VIAL ONE
[2016-08-22 09:06] LABS: HEMATOCRIT 40.7 % (35.0-46.0); MEAN CELL VOLUME 90.4 FL (80.0-100.0); MEAN CORPUSCULAR HEMOGLOBIN 30.9 PG (27.0-34.0); MEAN CORPUSCULAR HGB CONC 34.2 % (32.0-36.0); PLATELET COUNT 393 TH/MM3 (150-450); RED CELL DISTRIBUTION WIDTH 13.7 % (11.6-17.2); REVIEW FLAG FINAL; WHITE BLOOD COUNT 8.3 TH/MM3 (4.0-11.0)
[2016-08-22 09:30] LABS: ANION GAP 5 MEQ/L (5-15); AST (GOT) 17 U/L (15-37); BICARBONATE 27.9 MEQ/L (21.0-32.0); BLOOD UREA NITROGEN 14 MG/DL (7-18); CHLORIDE 101 MEQ/L (98-107); GLOMERULAR FILTRATION RATE 59 ML/MIN (>89); GLUCOSE,FASTING 92 MG/DL (74-99); POTASSIUM 4.9 MEQ/L (3.5-5.1); SODIUM (NA) 134 MEQ/L (136-145)
[2016-08-22 09:44] LABS: ALKALINE PHOSPHATASE 81 U/L (45-117); ALT (GPT) 21 U/L (10-53); HDL CHOLESTEROL 50.8 MG/DL (40.0-60.0); LDL CHOLESTEROL 152 MG/DL (0-99); TOTAL BILIRUBIN ADULT 0.4 MG/DL (0.2-1.0)
== END ==
LOC: PLAB 06:57
PROVIDERS: ATTEND Family Medicine
DX: I10 Essential (primary) hypertension (principal); E78.4 Other hyperlipidemia; E03.9 Hypothyroidism, unspecified; J47.9 Bronchiectasis, uncomplicated; Z86.73 Personal history of transient ischemic attack (TIA), and cerebral infarction without residual deficits
CPT/HCPCS: 36415; 80053; 80061; 84443; 85027